=== PATIENT | male | born 1945 | race Caucasian/White ===

== ENCOUNTER → 2024-08-09 12:32 | Outpatient (REF) | payer MEDICARE, SELFPAY | LOC: RAD 12:32 | PROVIDERS: ATTENDING PHYSICIAN Surgery Vascular Surgery; FAMILY PHYSICIAN Physician Assistant | DX: I65.23 Occlusion and stenosis of bilateral carotid arteries (principal) | CPT/HCPCS: 70496; 70498; Q9967 ==

== ENCOUNTER → 2025-02-11 13:20 | Outpatient (REF) | payer MEDICARE, SELFPAY | LOC: RAD 13:20 | PROVIDERS: ATTENDING PHYSICIAN Surgery Vascular Surgery; FAMILY PHYSICIAN Physician Assistant | DX: I65.23 Occlusion and stenosis of bilateral carotid arteries (principal) | CPT/HCPCS: 93880 ==